=== PATIENT | female | born 1990 ===

== ENCOUNTER 2024-11-25 05:21 | Day surgery (SDC) | payer MEDICAID ==
[~2024-11-25 05:21] MED LIST: Sodium Chloride 0.9% 10 ML Syringe FLUSH PRN; Sodium Chloride 0.9% 10 ML Syringe FLUSH SCH
[2024-11-25] MEDS ORDERED: Sodium Chloride 0.9% 10 ML Syringe IV ONE (05:22)
[2024-11-25] MEDS ORDERED: Lactated Ringers 1,000 ML IV ONE (05:22)
[2024-11-25] MEDS ORDERED: Propofol 200 MG/20 ML SDV IV ONE (05:22)
[2024-11-25] MEDS ORDERED: Propofol 200 MG/20 ML SDV ONE ×2 (05:49→08:51)
[2024-11-25] MEDS: Lactated Ringers 1,000 ML IV SCH (05:55)
== END 2024-11-25 08:08 | disposition home or self-care (01) ==
LOC: DL.ENDO 05:21
PROVIDERS: ATTEND Internal Medicine Gastroenterology
DX: D12.5 Benign neoplasm of sigmoid colon (principal); K62.5 Hemorrhage of anus and rectum
CPT/HCPCS: 00811; 45385; J2704; J7120